=== PATIENT | male | born 1965 | race Caucasian/White ===

== ENCOUNTER 2016-10-27 12:29 | Emergency (ER) | payer OTHER ==
[~2016-10-27] VITALS: Ht 152.4 cm; Wt 45.4 kg
[~2016-10-27 12:29] MED LIST: ALBUTEROL2.5 MG/0.1 INH; AZITHROMYC200 MG/51 PO; MUCINEX22 ML; MUCINEX600 MG PO
[2016-10-27] MEDS ORDERED: PREDNISOLO15 MG/5 ML PO (13:12)
[2016-10-27 13:48] LABS: HEMATOCRIT 39.2 % (42.0-52.0); HEMOGLOBIN 13.1 gm/dL (14.0-18.0); MCH 29.5 pg (26.0-34.0); MCHC 33.4 % (28.0-37.0); MCV 88.1 fL (80.0-100.0); PLATELET COUNT 238 thou/uL (150-400); RBC 4.45 mil/uL (4.50-6.00); RDW 12.5 % (10.5-14.5); WBC 11.1 thou/uL (4.0-11.0)
[2016-10-27 13:56] LABS: MANUAL DIFF YES
[2016-10-27 13:59] LABS: POTASSIUM 4.2 mmol/L (3.5-5.1)
[2016-10-27 14:00] LABS: CREATININE 0.6 mg/dL (0.6-1.3)
[2016-10-27 14:20] LABS: ABSOLUTE NEUTROPHILS 9.5 thou/uL (1.4-8.2); TOTAL CELL COUNT 100
[2016-10-27 14:21] LABS: ANISOCYTOSIS 1+
[2016-10-27] MEDS ORDERED: AZITHROMYC200 MG/52 PO (14:40)
== END 2016-10-27 15:25 | disposition home or self-care (01) ==
LOC: ER 12:29
PROVIDERS: Emergency Medicine
DX: J18.9 Pneumonia, unspecified organism (principal); T50.905A Adverse effect of unspecified drugs, medicaments and biological substances, initial encounter; Y92.89 Other specified places as the place of occurrence of the external cause; J45.909 Unspecified asthma, uncomplicated; Z86.69 Personal history of other diseases of the nervous system and sense organs; Z98.890 Other specified postprocedural states; Z88.1 Allergy status to other antibiotic agents; Z88.2 Allergy status to sulfonamides; Z91.011 Allergy to milk products

== ENCOUNTER 2017-04-21 11:45 | Observation (INO) | payer OTHER ==
[~2017-04-21] VITALS: Ht 157.5 cm; Wt 32.2 kg
[2017-04-21 11:45] VITALS: BP 108/74
[~2017-04-21 11:45] MED LIST changes: +AZITHROMYC200 MG/52 PO; +PREDNISOLO15 MG/5 ML PO
[2017-04-21 12:58] LABS: URINE BILIRUBIN NEGATIVE (Negative); URINE BLOOD NEGATIVE (Negative); URINE COLOR YELLOW; URINE GLUCOSE-RANDOM* NEGATIVE (Negative); URINE KETONES NEGATIVE (Negative); URINE NITRITE NEGATIVE (Negative); URINE PROTEIN (DIPSTICK) NEGATIVE (Negative); URINE UROBILINOGEN 0.2 E.U./dl (0.2-1.0)
[2017-04-21 15:03] LABS: BASOPHILS 0.4 % (0.0-2.0); EOSINOPHILS 0.4 % (0.0-3.0); HEMATOCRIT 37.8 % (42.0-52.0); HEMOGLOBIN 12.9 gm/dL (14.0-18.0); LYMPHOCYTES 13.2 % (24.0-44.0); MCH 30.5 pg (26.0-34.0); MCHC 34.1 g/dL (28.0-37.0); MCV 89.4 fL (80.0-100.0); MONOCYTES 10.3 % (1.0-8.0); POLYS 75.7 % (36.0-66.0); RBC 4.22 mil/uL (4.50-6.00); RDW 12.9 % (10.5-14.5); WBC 18.2 thou/uL (4.0-11.0)
[2017-04-21 15:04] LABS: MANUAL DIFF NO
[2017-04-21 15:10] LABS: CALCIUM 9.1 mg/dL (8.5-10.1); CREATININE 0.6 mg/dL (0.7-1.3); POTASSIUM 4.3 mmol/L (3.5-5.1)
[2017-04-21 15:59] VITALS: BP 110/73
[2017-04-21 16:22] LABS: PLATELET COUNT 115 thou/uL (150-400)
[2017-04-21 18:23] LABS: URINE BILIRUBIN NEGATIVE (Negative); URINE BLOOD 3+ (Negative); URINE COLOR YELLOW; URINE GLUCOSE-RANDOM* NEGATIVE (Negative); URINE KETONES TRACE (Negative); URINE LEUKOCYTES-REFLEX 1+ (Negative); URINE PROTEIN (DIPSTICK) 1+ (Negative); URINE UROBILINOGEN 0.2 E.U./dl (0.2-1.0)
[2017-04-21 18:33] LABS: AMORPHOUS PHOSPHATES Many /LPF (None Seen); CASTS None Seen /LPF (None Seen); SQUAMOUS None Seen /LPF (0-3); URINE WBC-REFLEX 0-5 Rare /HPF (0-5)
[2017-04-21 19:06] VITALS: BP 98/53
[2017-04-21 23:01] VITALS: BP 106/66
[2017-04-22 04:38] LABS: HEMATOCRIT 32.6 % (42.0-52.0); MCH 30.2 pg (26.0-34.0); MCHC 33.7 g/dL (28.0-37.0); MCV 89.6 fL (80.0-100.0); RBC 3.63 mil/uL (4.50-6.00); WBC 9.8 thou/uL (4.0-11.0)
[2017-04-22 04:59] LABS: CALCIUM 7.8 mg/dL (8.5-10.1); CREATININE 0.5 mg/dL (0.7-1.3); POTASSIUM 4.2 mmol/L (3.5-5.1)
[2017-04-22 08:00] VITALS: BP 111/71
[2017-04-22 17:00] VITALS: BP 111/68
[2017-04-23 04:00] VITALS: BP 117/62
[2017-04-23 08:39] VITALS: BP 122/65
[2017-04-23 13:41] VITALS: BP 122/65
[2017-04-23] MEDS ORDERED: LACTULOSE10 GM/153 PO (13:42)
== END 2017-04-23 14:30 | disposition home or self-care (01) ==
LOC: ER 11:45 → 5S 14:23 → EROBS 14:23 → 5S 15:34
PROVIDERS: Internal Medicine; Nurse Practitioner; Nurse Practitioner Adult Health
DX: K59.00 Constipation, unspecified (principal); K56.41 Fecal impaction; G80.9 Cerebral palsy, unspecified; R10.9 Unspecified abdominal pain; R33.9 Retention of urine, unspecified; J18.9 Pneumonia, unspecified organism; R07.9 Chest pain, unspecified
CPT/HCPCS: 62110; 62900; 70005